=== PATIENT | female | born 1945 | race Caucasian/White ===

== ENCOUNTER → 2021-06-07 | Outpatient (CLI) | payer BC ==
--- NOTE | 2021-06-08 08:58 | KCIC ---
DXA BONE DENSITY AXIAL History: Reason: POST MENOPAUSAL / Spl. Instructions: / History: Comparison: None. TECHNIQUE: Dual energy x-ray absorptiometry of the lumbar spine and left hip was performed. T-score o f average bone mineral density based was calculated based on standard deviations above or below the e xpected young adult normal value. Diagnostic definitions were established by the [employer] at[employer]. FINDINGS: The average bone mineral density associated with L1-L4 is 0.955 g/cm^2, corresponding with a T-score of -0.8. The average total bone mineral density associated with left hip is 0.804 g/cm^2, corresponding with a T-score of -1.1. Refer to the worksheets for full detail. IMPRESSION: 1. Osteopenia. Average bone mineral density yields a T-score between -1.0 and -2.5. Fracture risk is increased. Electronically signed by: Ed Guthrie DO (06/08/2021 8:56 AM) [id number]
--- NOTE | 2021-06-08 16:01 | KCIC ---
Bilateral digital screening 2-D and 3-D (digital breast tomosynthesis) mammogram: Reason for examination: Routine screening. Comparison: Mammograms from 12/12/2016, 08/19/2015, and 02/22/2018. Interpretation was made with the benefit of CAD. FINDINGS: Breast density: Category B. There are scattered areas of fibroglandular density. No new suspicious breast mass, malignant appearing calcifications, or architectural distortion is see n. There are very small oval circumscribed masses in both breasts that is a benign finding, and likel y due to cysts. One of these in the 10:00 position of the right breast has decreased in size since ol jamin mammograms IMPRESSION: No evidence of malignancy. Assessment: BI-RADS 2. Benign findings. Recommendation: Routine screening mammograms. The patient will receive a letter with the results in the mail. Patient information will be entered i nto the mammography reminder system with a target recall date for the next mammogram. A reminder markus er will be generated. Electronically signed by: Marcy Franco MD (06/08/2021 3:59 PM) [email or web address]
== END ==
LOC: KCIC MAMMO 12:31
PROVIDERS: ATTEND Family Medicine
DX: Z12.31 Encounter for screening mammogram for malignant neoplasm of breast (principal); M85.89 Other specified disorders of bone density and structure, multiple sites; Z78.0 Asymptomatic menopausal state
CPT/HCPCS: 77063; 77067; 77080